=== PATIENT | female | born 1980 | race Caucasian/White ===

== ENCOUNTER → 2021-07-03 | Outpatient (CLI) | payer BC ==
--- NOTE | 2021-07-07 10:09 | MM ---
Reason for exam: screening (asymptomatic). Baseline mammogram. Physical Findings: Nurse did not find any significant physical abnormalities on exam. MG Screening Mammo w CAD Bilateral CC and MLO view(s) were taken. There are scattered fibroglandular densities. Asymmetric breast tissue in right lower inner quadrant 6cm from nipple and in the left upper quadrant 9-10cm from nipple on MLO view. ASSESSMENT: Incomplete: need additional imaging evaluation, BI-RAD 0 RECOMMENDATION: Special view mammogram of both breasts. If lesion persists on supplemental views, image directed ultrasound is recommended. [facility] will attempt to contact patient to return for supplemental views and ultrasound if indicated.
== END | disposition home or self-care (01) ==
LOC: RADMAMWWP 14:28
PROVIDERS: ATTEND Obstetrics & Gynecology
DX: Z12.31 Encounter for screening mammogram for malignant neoplasm of breast (principal)
CPT/HCPCS: 77067

== ENCOUNTER → 2021-07-15 | Outpatient (CLI) | payer BC ==
--- NOTE | 2021-07-15 11:28 | MM ---
Reason for exam: additional evaluation requested from abnormal screening. Last mammogram was performed less than 1 month ago. Physical Findings: Breast exam preformed at baseline screening. MG Work Up Mamm w CAD BILAT Bilateral spot compression MLO and LM view(s) were taken. Spot compression CC view(s) were taken of the right breast. Prior study comparison: July 03, 2021, bilateral MG screening mammo w CAD. Persistent asymmetric density inner right CC view 6.7cm from nipple, 6mm in size. No discrete abnormality on the left. These results were verbally communicated with the patient and result sheet given to the patient on 07/15/21. ASSESSMENT: Incomplete: need additional imaging evaluation, BI-RAD 0 RECOMMENDATION: Ultrasound of the right breast.
--- NOTE | 2021-07-15 11:29 | USB ---
Reason for exam: additional evaluation requested from abnormal screening. US Breast Workup Limited RT Technologist: Heide Goldberg Right limited breast ultrasound including focal area of concern, retroareolar and axilla demonstrates no cystic or solid lesion seen. These results were verbally communicated with the patient and result sheet given to the patient on 07/15/21. ASSESSMENT: Probably benign, BI-RAD 3 RECOMMENDATION: Follow-up diagnostic mammogram of the right breast in 6 months.
== END | disposition home or self-care (01) ==
LOC: RADMAMWWP 10:23
PROVIDERS: ATTEND Obstetrics & Gynecology
DX: R92.8 Other abnormal and inconclusive findings on diagnostic imaging of breast (principal)
CPT/HCPCS: 77066

== ENCOUNTER → 2022-07-21 | Outpatient (CLI) | payer BC ==
--- NOTE | 2022-07-21 10:39 | MM ---
Reason for Exam: Additional evaluation requested from prior study. Last screening mammogram was performed 12 month(s) ago. Patient History: Menarche at age 11. First Full-Term at age 23. Patient used Hormonal Contraceptives for 2 years. Last menstrual period: 07/16/2022 Risk Values: Coreen 5 year model risk: 0.6%. NCI Lifetime model risk: 8.9%. Prior Study Comparison: 07/03/2021 Bilateral Screening Mammogram, [facility]. 07/15/2021 Bilateral Diagnostic Mammogram, [facility]. Tissue Density: The breast tissue is heterogeneously dense. This may lower the sensitivity of mammography. Findings: Analyzed By CAD. There is a focal asymmetry within the inferior medial right breast, stable from comparison. The bilateral breasts appear stable from comparison. No suspicious spiculated or lobular masses, cluster microcalcifications, architectural distortion, or other secondary signs of malignancy are radiographically apparent. Overall Assessment: Benign, BI-RAD 2 Management: Screening Mammogram of both breasts in 1 year. A clinical breast exam by your physician is recommended on an annual basis and results should be correlated with mammographic findings. This exam should not preclude additional follow-up of suspicious palpable abnormalities. Results were given to the patient verbally at the time of exam. Electronically signed and approved by: Francois Marmolejo D.O. Radiologis
== END | disposition home or self-care (01) ==
LOC: RADMAMWWP 10:05
PROVIDERS: ATTEND Obstetrics & Gynecology
DX: R92.8 Other abnormal and inconclusive findings on diagnostic imaging of breast (principal)
CPT/HCPCS: 77066

== ENCOUNTER 2022-08-05 06:15 | Day surgery (SDC) | payer BC ==
[2022-07-30 11:36] VITALS: BMI 23.5
--- NOTE | 2022-08-04 17:40 | P.HPOB ---
History of Present Illness H&P Date: 08/04/22 Chief Complaint: Menorrhagia with irregular cycle, family planning This is a 41 y.o. female, 2, para 2, who presents for laparoscopic bilateral tubal ligation via fulgaration with Davinci and dilatation and curettage with hysteroscopy and Novasure endometrial ablation due to menorrhagia with irregular cycle and family planning. Despite oral contraceptives, she has been bleeding up to 3 weeks at a time with only about a week off, sometimes very heavy and other times more spotting. She no longer desires fertility and would like definitive surgical treatment. Her pelvic ultrasound showed uterus measuring 8.8 x 5.6 x 4.7 cm with endometrium measuring 3.5 mm and possible small 2.4 cm fundal fibroid and a 1.7 cm subserosal fundal fibroid. Small simple cysts were noted on both ovaries. OB Hx: . 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 No current sexual activity. Social Hx: . 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 Review of Systems Constitutional: Denies chills, Denies fever Eyes: denies blurred vision, denies pain Ears, nose, mouth and throat: Denies headache, Denies sore throat Cardiovascular: Denies chest pain, Denies shortness of breath Respiratory: Denies cough Gastrointestinal: Denies abdominal pain, Denies diarrhea, Denies nausea, Denies vomiting Genitourinary: Reports menorrhagia Menstruation: Reports menses 8 or > days, Reports menses variable, Reports period heavy Musculoskeletal: Denies myalgias Integumentary: Denies pruritus, Denies rash Neurological: Denies numbness, Denies weakness Psychiatric: Reports anxiety, Denies depression Endocrine: Denies fatigue, Denies weight change Past Medical History Past Medical History: No Reported History History of Any Multi-Drug Resistant Organisms: None Reported Past Surgical History: Section (x2) Past Anesthesia/Blood Transfusion Reactions: No Reported Reaction Past Psychological History: Anxiety Smoking Status: Former smoker Past Alcohol Use History: Occasional Past Drug Use History: None Reported - Past Family History Sister(s) Family Medical History: Cancer Medications and Allergies Home Medications Medication Instructions Recorded Confirmed Type No Known Home Medications 07/30/22 07/30/22 History Allergies Allergy/AdvReac Type Severity Reaction Status Date / Time No Known Allergies Allergy Verified 07/30/22 11:28 Exam Osteopathic Statement: *. No significant issues noted on an osteopathic structural exam other than those noted in the History and Physical/Consult. HEENT: within normal limits Heart: regular rate and rhythm Lungs: clear to auscultation bilaterally Abdomen: soft, non-tender Pelvic: uterus retroverted, non-tender, no adnexal masses or tenderness noted. Extremities: neg. Juan Miguel's Assessment and Plan (1) Menorrhagia with irregular cycle Current Visit: No Status: Acute Code(s): N92.1 - EXCESSIVE AND FREQUENT MENSTRUATION WITH IRREGULAR CYCLE SNOMED Code(s): 058795395 (2) Family planning Current Visit: No Status: Acute Code(s): Z30.09 - ENCOUNTER FOR OT GENERAL CNSL AND ADVICE ON CONTRACEPTION SNOMED Code(s): 797248715 Plan: Proceed with dilatation and curettage with hysteroscopy and Novasure endometrial ablation and laparoscopic bilateral tubal ligation via fulgaration with Davinci. I have discussed the risks, benefits, and alternative therapies for the above- mentioned procedure and for both sedation/anesthesia as well as necessary blood products administration, if indicated, as they pertain to this patient. The patient has indicated her understanding and acceptance of the risks and procedures discussed.
[~2022-08-05 06:15] MED LIST: Pre Op ABX Message 1 EACH MISC MISCELLANE ONE
[2022-08-05] MEDS ORDERED: ONDANSETRON 4 MG/2 ML VIAL IVP ONE (06:25)
[2022-08-05] MEDS ORDERED: LACTATED RINGERS 1,000 ML IV SCH (06:25)
[2022-08-05] MEDS ORDERED: LIDOCAINE 1% (10MG/ML) FOR IV START INTRADERMA PRN (06:25)
[2022-08-05] MEDS ORDERED: DEXAMETHASONE SOD PHOSPHATE 4 MG/ML 1 ML VIAL IV ONE (06:25)
[2022-08-05] MEDS ORDERED: SCOPOLAMINE 1 MG/72 HR PATCH TRANSDERM ONE (06:25)
[2022-08-05] MEDS ORDERED: NEOSTIGMINE 1 MG/ML 10 ML VIAL ONE (07:36)
[2022-08-05] MEDS ORDERED: MIDAZOLAM 2 MG/2 ML VIAL ONE (07:36)
[2022-08-05] MEDS ORDERED: GLYCOPYRROLATE 0.2 MG/ML 2 ML VIAL ONE (07:36)
[2022-08-05] MEDS ORDERED: PROPOFOL 10 MG/ML 20 ML VIAL IV ONE (07:36)
[2022-08-05] MEDS ORDERED: fentaNYL (PF) 50 MCG/ML 2 ML AMP ONE (07:36)
[2022-08-05] MEDS ORDERED: SUCCINYLCHOLINE CHLORIDE 200 MG/10 ML VIAL IV ONE (07:36)
[2022-08-05] MEDS ORDERED: LIDOCAINE 2% INJ 20 MG/ML (2 ML VIAL) ONE (07:36)
[2022-08-05] MEDS ORDERED: ROCURONIUM 10 MG/ML (5 ML VIAL) IV ONE (07:36)
[2022-08-05] MEDS ORDERED: BUPIVACAINE (PF) 0.25% 30 ML VIAL SQ ONE ×2 (08:20→08:54)
--- NOTE | 2022-08-05 09:12 | P.OP ---
Date of Procedure: 08/05/22 Preoperative Diagnosis: Family planning Menorrhagia with irregular cycle Postoperative Diagnosis: Same plus endometriosis Procedure(s) Performed: Dilation and curettage with hysteroscopy and NovaSure endometrial ablation Laparoscopic bilateral tubal ligation via fulguration with da Pattie Ablation of endometriosis Anesthesia: DERRICK Surgeon: Vashti Dominguez Estimated Blood Loss (ml): 10 Pathology: other (Endometrial curettings) Condition: stable Disposition: floor Indications for Procedure: This is a 41 y.o. female, 2, para 2, who presents for laparoscopic bilateral tubal ligation via fulgaration with Davinci and dilatation and curettage with hysteroscopy and Novasure endometrial ablation due to menorrhagia with irregular cycle and family planning. Despite oral contraceptives, she has been bleeding up to 3 weeks at a time with only about a week off, sometimes very heavy and other times more spotting. She no longer desires fertility and would like definitive surgical treatment. Her pelvic ultrasound showed uterus measuring 8.8 x 5.6 x 4.7 cm with endometrium measuring 3.5 mm and possible small 2.4 cm fundal fibroid and a 1.7 cm subserosal fundal fibroid. Small simple cysts were noted on both ovaries. Operative Findings: Uterus is retroverted. And sounded to 10 cm. Cervix is sounded to 3 cm. Upon hysteroscopy, a dyssynchronous endometrial pattern is noted. Upon laparoscopy, uterus is noted to have a right fundal fibroid. Both tubes and ovaries appeared normal. There was a small focus of endometriosis in the right cul-de-sac. Description of Procedure: The patient is taken to the operating room. She is placed in the dorsal lithotomy position after general anesthesia was given. She is prepped and draped in the normal sterile fashion with arms tucked. Bladder is drained with a Meza catheter. Pelvic exam is performed under anesthesia. Uterus is found to be retroverted with no adnexal masses. She is placed in slight Trendelenburg position. A right angle retractor is used to visualize the cervix. The anterior lip of the cervix is grasped with a single-tooth tenaculum. Cervix is sounded to 3 cm. Uterus is sounded to 10 cm. Cervix is gently dilated with Boogie dilators until a hysteroscope could be passed. Hysteroscopy is performed using normal saline. The above noted findings are noted. Next medium-sized size sharp curette was placed. A moderate amount of endometrial curettings were obtained. Next NovaSure array was inserted into the endometrial cavity. Length was set at 6.5 cm and width was determined to be 4.4 cm. Next cavity assessment was completed and passed on the first try. Next NovaSure array was fired at 157 W for 43 seconds. Next the array was removed, inspected and then discarded. Next the hysteroscope was reinserted. Uniform charring was noted. Pictures were taken. Hysteroscope was removed. Next a kroner uterine manipulator is inserted through the cervix and the balloon is inflated. Single-tooth tenaculum was removed from the anterior lip of the cervix. Minimal bleeding was noted. All other instruments removed from the vagina. Gloves are changed and attention is turned to the abdomen. The uterus is anteverted and the fundus of the uterus is marked on the abdomen. Next a small incision is made approximately 2 cm above the umbilicus with a scalpel and then a 5 mm disposable bladeless trocar is inserted under direct visualization using low flow. Once inside, pneumoperitoneum was achieved with CO2 gas and the pelvic contents were inspected. The patient is placed in 25 of Trendelenburg. Next an incision is made approximately 8 cm to the right of umbilicus approximately 2 cm below the umbilicus. An 8 mm da Pattie trocar is then placed under direct visualization. Next the camera is inserted through this port and an incision is made approximately 8 cm to the left of the umbilicus and about 2 cm below the umbilicus. An 8 mm da Pattie trocar is then also placed under direct visualization. Next the 5 mm trocar is removed from above the umbilicus and an 8 mm da Pattie port is placed under direct visualization. The legs are lowered slightly. The robot is then docked from the left side of the patient. A fenestrated bipolar is placed in arm 2. Arm 1 had already been stowed. A Josh is then placed in arm 4. A smoke evacuator is attached to one of the ports. I then broke scrub and went to the [employer] console. An overall picture is taken first. There is noted to be a fibroid on the right anterior portion of the uterus. The left fallopian tube is grasped with the Josh on the fimbriated and and then the fenestrated bipolar is used to grasp the midportion of the tube and bipolar energy is applied to approximately 2-3 cm segment of the tube. The same procedure is carried out on the right fallopian tube. Inspection of the remaining pelvis revealed a small focus of brown endometriosis on the right cul-de-sac. This area was grasped with the fenestrated bipolar and pulled away from other structures and cauterized. No other abnormalities were visualized. At this point the procedure was concluded. The instruments were removed under direct visualization and then the camera was removed. The robot is undocked. The pneumoperitoneum is released and then the trochars were removed. Incisions were then closed with 4-0 undyed Vicryl suture in a subcuticular fashion and Steri-Strips were placed. Incisions were injected with quarter percent Marcaine. Approximately 7 mL were used. The kroner uterine manipulator is deflated and removed and then the Meza catheter is removed. All sponge and needle counts are correct. The patient is then taken to recovery room in stable condition.
[2022-08-05 09:13] VITALS: TEMP 96.9
[2022-08-05] MEDS: HYDROmorphone 0.5 MG/0.5 ML SYRINGE IVP PRN ×2 (09:30→09:45)
[2022-08-05] MEDS ORDERED: KETOROLAC 15 MG/ML 1 ML VIAL IVP ONE (09:33)
[2022-08-05] MEDS ORDERED: LACTATED RINGERS 1,000 ML IV ONE ×2 (09:47)
[2022-08-05 10:12] VITALS: RESP 17
[2022-08-05 10:48] VITALS: BP 107/71; PULSE 56
== END 2022-08-05 11:08 | disposition home or self-care (01) ==
LOC: OR 06:15
PROVIDERS: ATTEND Obstetrics & Gynecology
DX: N92.1 Excessive and frequent menstruation with irregular cycle (principal); Z30.2 Encounter for sterilization; N80.9 Endometriosis, unspecified
CPT/HCPCS: 58563; 58670; 81025; 88305; J2250; J0330; J1100; J2710; J2405; J3010; J1885; J2704; J1170; J2001

== ENCOUNTER → 2023-04-28 | Outpatient (CLI) | payer OTHER ==
[2023-04-28 11:14] VITALS: BP 114/67; PULSE 77; RESP 18; TEMP 98.5
--- NOTE | 2023-04-28 11:26 | P.GSHP ---
History of Present Illness H&P Date: 04/28/23 Jacky is a 42 year old white female seen in consultation for Dr. Dominguez. She had a bilateral mammogram on 07-21-22 which was BIRAD 2. She is complaining of right breast lumpiness. About 3 months ago she noted an area of nodularity in the right breast. This is not complaining of any nipple discharge or skin changes. She's not had any surgery in her breast. She does not complain of any recent trauma or infection in the breast. It is not complaining of any pain in her breast. Her last menstrual cycle about 1 month ago, have a uterine ablation done in July 2022 and since then her periods are very minimal. Caffeine: 1 coffee/day/ occasional coke nicotine: none; stopped 16 years ago chocolate: occasional BCP: used them for about 2 years hormones: none Note Dr. Dominguez 03-03-23 reviewed Family History: sister:throat cancer Hormonal History: menarche: 10 , breast fed: no, age at first : 23 periods regular but minimal after ablation Surgical History: 2 Sections Medical History: none Social history: Nicotine: As above Alcohol: Occasional Drugs: Negative - Constitutional Constitutional: Denies chills, Denies fever - EENT Eyes: denies blurred vision, denies pain Ears: deny: decreased hearing, tinnitus Ears, nose, mouth and throat: Denies headache, Denies sore throat - Breasts Breasts: bilateral: as per HPI - Cardiovascular Cardiovascular: Denies chest pain, Denies shortness of breath - Respiratory Respiratory: Denies cough, Denies 7 - Gastrointestinal Gastrointestinal: Denies abdominal pain, Denies diarrhea, Denies nausea, Denies vomiting - Genitourinary (Female) Genitourinary: Denies dysuria, Denies hematuria - Menstruation Menstruation: Reports as per HPI - Musculoskeletal Musculoskeletal: Denies myalgias - Integumentary Integumentary: Denies pruritus, Denies rash - Neurological Neurological: Denies numbness, Denies weakness - Psychiatric Psychiatric: Denies anxiety, Denies depression - Endocrine Endocrine: Denies fatigue, Denies weight change - Hematologic/Lymphatic Comment: none - Allergic/Immunologic Allergic/Immunologic: Reports seasonal allergies Medications and Allergies Home Medications Medication Instructions Recorded Confirmed Type HYDROcodone/APAP 5-325MG [Pfeifer 1 tab PO Q6HR PRN 3 Days #12 tab 08/05/22 Rx 5-325] Allergies Allergy/AdvReac Type Severity Reaction Status Date / Time No Known Allergies Allergy Verified 07/30/22 11:28 Surgical - Exam - General no distress - Eyes normal ocular movement - ENT no hearing loss - Neck trachea midline - Respiratory normal respiratory effort, clear to auscultation - Cardiovascular Rhythm: regular Heart Sounds: normal: S1, S2 - Abdomen Abdomen: soft, non tender, no guarding, no rigid, no rebound - Integumentary normal turgor - Neurologic no disoriented, no combative - Musculoskeletal normal gait - Psychiatric oriented to time, oriented to person, oriented to place, speech is normal, memory intact Breast Exam: BRA: 34D Inspection: Right breast is slightly larger than left breast, bilateral grade 2 ptosis Palpation: Right breast: Multiple positional exam slight increased fullness in the upper outer quadrant area fibrocystic changes no definite discrete masses or nodules of concern Right axilla: No adenopathy of concern Left breast: Multi-positional exam fibrocystic changes Left axilla: No adenopathy of concern Examination of the integument reveals a dark nevus approximately 1 cm in size under the left breast there is additional nevus on the right upper thigh which is also dark in nature with a second one in close proximity to this Results Mammogram reviewed this is a benign BIRADS 2 done in June 2022 Assessment and Plan Assessment: Impression: Increased nodularity right breast upper outer quadrant Skin changes as noted Plan: Bilateral breast ultrasound Repeat right breast mammogram Excision of skin lesion under her left breast Appointment with dermatology follow up after above done Cc: Dr. Dominguez, Dr. Hylton
== END ==
LOC: WWCWWP 11:01
PROVIDERS: ATTEND Surgery
DX: N63.11 Unspecified lump in the right breast, upper outer quadrant (principal); Z87.891 Personal history of nicotine dependence

== ENCOUNTER → 2023-08-08 | Outpatient (CLI) | payer OTHER ==
--- NOTE | 2023-08-08 10:19 | USB ---
Reason for Exam: Follow-up at short interval from prior study. Patient History: Menarche at age 11. First Full-Term at age 23. Patient used Hormonal Contraceptives for 2 years. Risk Values: Coreen 5 year model risk: 0.6%. NCI Lifetime model risk: 8.8%. Technique: Method: Targeted. Prior Study Comparison: 07/03/2021 Bilateral Screening Mammogram, [facility]. 07/15/2021 Bilateral Diagnostic Mammogram, [facility]. 07/21/2022 Bilateral MG diagnostic mammo w CAD [facility], [facility]. Findings: The medial section of the breast of the right breast, the axilla of the right breast and the retroareolar of the right breast were scanned. No solid or cystic masses are identified.. Overall Assessment: Negative, BI-RAD 1 Management: Screening Mammogram of both breasts in 1 year. A clinical breast exam by your physician is recommended on an annual basis and results should be correlated with mammographic findings. This exam should not preclude additional follow-up of suspicious palpable abnormalities. Results were given to the patient verbally at the time of exam. Electronically signed and approved by: Davis Gaviria M.D. Radiologis
--- NOTE | 2023-08-08 10:20 | MM ---
Reason for Exam: Follow-up at short interval from prior study. Last mammogram was performed 1 year(s) and 1 month(s) ago. Patient History: Menarche at age 11. First Full-Term at age 23. Patient used Hormonal Contraceptives for 2 years. Last menstrual period: 07/25/2023 Risk Values: Coreen 5 year model risk: 0.6%. NCI Lifetime model risk: 8.8%. Prior Study Comparison: 07/03/2021 Bilateral Screening Mammogram, [facility]. 07/15/2021 Bilateral Diagnostic Mammogram, [facility]. 07/21/2022 Bilateral MG diagnostic mammo w CAD [facility], [facility]. Tissue Density: The breast tissue is heterogeneously dense. This may lower the sensitivity of mammography. Findings: Analyzed By CAD. Asymmetric density is redemonstrated retroareolar right breast. Ultrasound is obvious. No evidence for suspicious cluster of calcifications. Overall Assessment: Incomplete: need additional imaging evaluation, BI-RAD 0 Management: Diagnostic Breast Ultrasound of the right breast. . Results were given to the patient verbally at the time of exam. Patient should continue monthly self-breast exams. A clinical breast exam by your physician is recommended on an annual basis. This exam should not preclude additional follow-up of suspicious palpable abnormalities. Note on Coreen scores and lifetime risk: 1. A Coreen score greater than 3% is considered moderate risk. If this is the case, consider specialist referral to assess eligibility for a risk reducing agent. 2. If overall lifetime risk for the development of breast cancer is 20% or higher, the patient may qualify for future screening with alternating mammogram and breast MRI. Electronically signed and approved by: Davis Gaviria M.D. Radiologis
== END | disposition home or self-care (01) ==
LOC: RADMAMWWP 09:39
PROVIDERS: ATTEND Surgery
DX: R92.333 Mammographic heterogeneous density, bilateral breasts (principal)
CPT/HCPCS: 77062; 77066

== ENCOUNTER → 2023-09-01 | Outpatient (CLI) | payer OTHER ==
[2023-09-01 12:14] VITALS: BP 135/86; PULSE 90; RESP 18; TEMP 98.3
--- NOTE | 2023-09-01 12:33 | P.PN ---
Subjective Progress Note Date: 09/01/23 Jacky is a 42 year old white female seen in consultation for Dr. Dominguez. She had a bilateral mammogram on 07-21-22 which was BIRAD 2. She is complaining of right breast lumpiness. About 3 months ago she noted an area of nodularity in the right breast. This is not complaining of any nipple discharge or skin changes. She's not had any surgery in her breast. She does not complain of any recent trauma or infection in the breast. It is not complaining of any pain in her breast. Her last menstrual cycle about 1 month ago, have a uterine ablation done in July 2022 and since then her periods are very minimal. 09-01-23 The patient had a bilateral mammogram on [id number] and a right breast ultrasound. These were BIRADS 1. 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 She was recommended to have this reexcised. Initially a left breast ultrasound had also been recommended but this was not performed and at this time the patient has not been of concern on her examination. Caffeine: 1 coffee/day/ occasional coke nicotine: none; stopped 16 years ago chocolate: occasional BCP: used them for about 2 years hormones: none Family History: sister:throat cancer Hormonal History: menarche: 10 , breast fed: no, age at first : 23 periods regular but minimal after ablation Surgical History: 2 Sections Medical History: none Social history: Nicotine: As above Alcohol: Occasional Drugs: Negative - Constitutional Constitutional: Denies chills, Denies fever - EENT Eyes: denies blurred vision, denies pain Ears: deny: decreased hearing, tinnitus Ears, nose, mouth and throat: Denies headache, Denies sore throat - Breasts Breasts: bilateral: as per HPI - Cardiovascular Cardiovascular: Denies chest pain, Denies shortness of breath - Respiratory Respiratory: Denies cough - Gastrointestinal Gastrointestinal: Denies abdominal pain, Denies diarrhea, Denies nausea, Denies vomiting - Genitourinary (Female) Genitourinary: Denies dysuria, Denies hematuria - Menstruation Menstruation: Reports as per HPI - Musculoskeletal Musculoskeletal: Denies myalgias - Integumentary Integumentary: Denies pruritus, Denies rash - Neurological Neurological: Denies numbness, Denies weakness - Psychiatric Psychiatric: Denies anxiety, Denies depression - Endocrine Endocrine: Denies fatigue, Denies weight change - Hematologic/Lymphatic Comment: none - Allergic/Immunologic Allergic/Immunologic: Reports seasonal allergies Medications and Allergies Home Medications Medication Instructions Recorded Confirmed Type HYDROcodone/APAP 5-325MG [Turner 1 tab PO Q6HR PRN 3 Days #12 tab 08/05/22 Rx 5-325] Allergies Allergy/AdvReac Type Severity Reaction Status Date / Time No Known Allergies Allergy Verified 07/30/22 11:28 Objective - Vital Signs Vital signs: Vital Signs Temp 98.3 F 09/01/23 11:56 Pulse 90 09/01/23 11:56 Resp 18 09/01/23 11:56 BP 135/86 09/01/23 11:56 Pulse Ox 97 09/01/23 11:56 FiO2 Intake & Output 08/31/23 09/01/23 09/01/23 18:59 06:59 18:59 Weight 63.503 kg - Constitutional General appearance: Present: cooperative - EENT ENT: Present: hearing grossly normal - Neck Neck: Present: normal ROM - Respiratory Respiratory: bilateral: CTA - Cardiovascular Rhythm: regular Heart sounds: normal: S1, S2 - Integumentary Integumentary Comment(s): Well-healed scar under her left breast from prior nevi's excision/pathology had some atypia at one of the peripheral tips Integumentary: Present: normal turgor - Musculoskeletal Musculoskeletal: Present: gait normal - Psychiatric Psychiatric: Present: A&O x's 3, appropriate affect, intact judgment & insight - Additional findings Additional findings: Breast Exam: BRA: 34D Inspection: Right breast is slightly larger than left breast, bilateral grade 2 ptosis Palpation: Right breast: Multiple positional exam slight increased fullness in the upper outer quadrant area fibrocystic changes no definite discrete masses or nodules of concern Right axilla: No adenopathy of concern Left breast: Multi-positional exam fibrocystic changes Left axilla: No adenopathy of concern Assessment and Plan Assessment: Impression: Fibrocystic breast changes Plan: Bilateral mammogram July 2024 with examination at that time Reexcision of atypical nevus under left breast Following informed consent the area of the prior nevus was prepped using Betadine. 1% lidocaine was used to anesthetize the area of concern. Wide excision was performed. The excision was approximately 1 cm in size. The skin was then closed using 4-0 nylon suture. The patient tolerated the procedure in stable condition. The specimen was sent to pathology. CC: Dr. Canchola CC: Dr. Dominguez
== END ==
LOC: WWCWWP 11:44
PROVIDERS: ATTEND Surgery
DX: N63.10 Unspecified lump in the right breast, unspecified quadrant (principal); F11.20 Opioid dependence, uncomplicated; N60.19 Diffuse cystic mastopathy of unspecified breast

== ENCOUNTER → 2023-09-12 | Outpatient (CLI) | payer OTHER ==
--- NOTE | 2023-09-12 14:53 | P.PN ---
Progress Note - Text Progress Note Date: 09/12/23 The patient had a bilateral mammogram on 417312 and a right breast ultrasound. These were BIRADS 1. 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 She was recommended to have this reexcised. Initially a left breast ultrasound had also been recommended but this was not performed and at this time the patient has not been of concern on her examination. This was reexcised and [id number]. Pathology did not reveal any residual atypical melanocytic lesion. He is doing well at this time. The incision is totally healed Plan: Suture removal Follow-up bilateral mammogram in July 2024 with appointment at that time Patient to follow up sooner any questions or concerns Patient encouraged to follow with dermatology secondary to the fact that she had a dysplastic nevus CC: Dr. Canchola
== END ==
LOC: WWCWWP 13:32
PROVIDERS: ATTEND Surgery
DX: D22.5 Melanocytic nevi of trunk (principal)